=== PATIENT | female | born 1950 | race Caucasian/White ===

== ENCOUNTER 2020-05-13 15:37 | Emergency (ER) | payer MEDICARE ==
[~2020-05-13] VITALS: Ht 160 cm; Wt 87.0 kg
[2020-05-13 15:42] VITALS: BP 184/76
[2020-05-13] MEDS ORDERED: KETOROLAC 30 MG/1 ML IM ONE (17:00)
[2020-05-13] MEDS ORDERED: ACETAMINOPHEN 325 MG TABLET PO ONE (17:00)
[2020-05-13] MEDS ORDERED: KETOROLAC 30 MG/1 ML ONE (17:10)
[2020-05-13] MEDS ORDERED: ACETAMINOPHEN 325 MG TABLET ONE (17:11)
--- NOTE | 2020-05-13 18:19 | NUR ---
[facility] CANCELLED PT CANNOT LAY FLAT. PROVIDER AWARE. RECORDS REQUESTED FROM [facility].
--- NOTE | 2020-05-13 19:08 | NUR ---
PT REFUSING NEW VITALS.
== END 2020-05-13 19:37 | disposition home or self-care (01) ==
LOC: ED 16:49
DX: M12.562 Traumatic arthropathy, left knee (principal); M12.561 Traumatic arthropathy, right knee; M12.551 Traumatic arthropathy, right hip; E11.9 Type 2 diabetes mellitus without complications; F17.200 Nicotine dependence, unspecified, uncomplicated; I10 Essential (primary) hypertension; E78.5 Hyperlipidemia, unspecified
CPT/HCPCS: 96372; 99283; J1885

== ENCOUNTER 2020-11-30 20:35 | Inpatient (IN) | payer MEDICARE, OTHER ==
[~2020-11-30] VITALS: Ht 160 cm; Wt 92.6 kg
[~2020-11-30 20:35] MED LIST: ASPI-963 PO; CIPR250T27 PO; HYDR25TA6 PO; INSU100I13 SQ; LISI20TA21 PO; PROP40TA PO; SIMV40TA20 PO; SITA100T PO
[2020-11-30] MEDS ORDERED: ONDANSETRON ODT 4 MG PO PRN (21:00)
[2020-11-30] MEDS ORDERED: ACETAMINOPHEN 325 MG TABLET PO PRN (21:00)
[2020-11-30] MEDS ORDERED: DOCUSATE 100 MG CAPSULE PO PRN (21:00)
[2020-11-30] MEDS ORDERED: BISACODYL 10 MG SUPP PR PRN (21:00)
[2020-11-30] MEDS ORDERED: POLYETHYLENE GLYCOL 17 GM PACKET PO PRN (21:00)
[2020-11-30] MEDS ORDERED: LORazepam 1MG TABLET PO ONE (23:00)
[2020-11-30] MEDS ORDERED: OLANZAPINE 5 MG TABLET PO ONE (23:00)
[2020-12-01 01:02] VITALS: BP 111/78
[2020-12-01 01:32] VITALS: BP 111/78
[2020-12-01 07:54] VITALS: BP 153/89
[2020-12-01 08:12] LABS: BASOPHILS % (AUTO) 0 % (0-1); EOSINOPHILS % (AUTO) 4 % (1-7); LYMPHOCYTES % (AUTO) 7 % (22-44); MEAN CORPUSCULAR HEMOGLOBIN 28.9 pg (27.0-34.8); MEAN CORPUSCULAR HGB CONC 32.9 g/dL (32.4-35.8); MEAN PLATELET VOLUME 8.8 fL (7.4-10.4); MONOCYTES % (AUTO) 10 % (2-9); NEUTROPHILS % (AUTO) 79 % (42-75); PLATELET COUNT 169 x10^3/uL (130-400); RED CELL DISTRIBUTION WIDTH 14.5 % (9.6-15.2)
[2020-12-01 08:15] LABS: MD NO
[2020-12-01 08:23] LABS: ALBUMIN 3.8 g/dL (3.4-5.0); ANION GAP 3 mmol/L (5-15); CALCIUM 9.5 mg/dL (8.5-10.1); CHLORIDE 103 mmol/L (98-107)
[2020-12-01 08:48] LABS: ALANINE AMINOTRANSFERASE 19 U/L (12-78); ALKALINE PHOSPHATASE 120 U/L (45-117); BILIRUBIN,TOTAL 0.6 mg/dL (0.2-1.0); CHOL/HDL RATIO 2.3; CHOLESTEROL, TOTAL 188 mg/dL (140-239); CREATININE 1.05 mg/dL (0.55-1.02); FREE T4 (FREE THYROXINE) 1.33 ng/dL (0.76-1.46); HDL CHOL % 44 % (28-40); HDL CHOLESTEROL (DIRECT) 82 mg/dL (40-60); LDL CHOLESTEROL,CALCULATED 70 mg/dL (54-169); LDL/HDL RATIO 0.9 (0.5-3.0); TOTAL PROTEIN 7.6 g/dL (6.4-8.2); TRIGLYCERIDES 181 mg/dL (50-200); VLDL CHOLESTEROL 36 mg/dL (0-25)
[2020-12-01 10:30] VITALS: BP 160/90
[2020-12-01 10:40] VITALS: BP 160/90
[2020-12-01] MEDS ORDERED: LORazepam 2 MG/ML, 1ML IM ONE (11:00)
--- NOTE | 2020-12-01 11:35 | NUR ---
[facility] GAO-Fall Risk Medications NOT present and NOT receiving anticoagulants. Signed: 12/01/20 at 1136 by Elizabeth CHAPMAN
[2020-12-01] MEDS ORDERED: DIAZEPAM 10 MG TABLET ONE (12:23)
[2020-12-01] MEDS ORDERED: DIAZEPAM 5 MG/ML, 2ML IM ONE (13:00)
[2020-12-01] MEDS ORDERED: DIAZEPAM 10 MG TABLET PO ONE (13:00)
[2020-12-01] MEDS ORDERED: ZIPRASIDONE 20 MG INJ IM ONE ×2 (13:30)
[2020-12-01] MEDS: INSULIN LISPRO 100 UNITS/ML, PEN SQ-INSULIN SCH ×2 (16:00→20:47)
[2020-12-01] MEDS ORDERED: PROPRANOLOL 10 MG TABLET PO SCH (18:00)
[2020-12-01 18:14] LABS: MICROSCOPIC AUTO
[2020-12-01 20:40] VITALS: BP 161/86
[2020-12-01] MEDS: INSULIN GLARGINE 100 UNITS/ML, PEN SQ-INSULIN SCH (20:48)
[2020-12-01] MEDS: SIMVASTATIN 40 MG TABLET PO SCH (20:50)
[2020-12-01] MEDS: PROPRANOLOL 10 MG TABLET PO SCH (20:50)
[2020-12-01] MEDS: NITROFURANTOIN (MACROBID) 100 MG CAPSULE PO SCH (20:50)
[2020-12-02] MEDS: INSULIN LISPRO 100 UNITS/ML, PEN SQ-INSULIN SCH ×4 (07:00→21:06)
[2020-12-02 07:55] VITALS: BP 158/83
[2020-12-02] MEDS: PROPRANOLOL 10 MG TABLET PO SCH ×2 (09:03→19:57)
[2020-12-02] MEDS: INSULIN GLARGINE 100 UNITS/ML, PEN SQ-INSULIN SCH ×2 (09:03→21:06)
[2020-12-02] MEDS: LISINOPRIL 20 MG TABLET PO SCH (09:04)
[2020-12-02] MEDS: NITROFURANTOIN (MACROBID) 100 MG CAPSULE PO SCH (09:04)
[2020-12-02] MEDS ORDERED: ZIPRASIDONE 20 MG INJ IM ONE ×2 (11:39→12:00)
[2020-12-02] MEDS ORDERED: ZIPRASIDONE 20MG CAPSULE PO PRN (14:00)
[2020-12-02 14:14] VITALS: BP 105/70
[2020-12-02] MEDS: CEPHALEXIN 500 MG CAPSULE PO SCH ×2 (16:04→19:57)
[2020-12-02 19:45] VITALS: BP 119/78
[2020-12-02] MEDS: ZIPRASIDONE 20MG CAPSULE PO SCH (19:57)
[2020-12-02] MEDS: SIMVASTATIN 40 MG TABLET PO SCH (19:57)
[2020-12-03] MEDS: CEPHALEXIN 500 MG CAPSULE PO SCH ×2 (06:09→12:12)
[2020-12-03] MEDS: INSULIN LISPRO 100 UNITS/ML, PEN SQ-INSULIN SCH ×4 (07:00→20:22)
[2020-12-03 07:46] VITALS: BP 114/73
[2020-12-03] MEDS: PROPRANOLOL 10 MG TABLET PO SCH ×2 (08:34→20:23)
[2020-12-03] MEDS: ZIPRASIDONE 20MG CAPSULE PO SCH ×2 (08:34→20:23)
[2020-12-03] MEDS: LISINOPRIL 20 MG TABLET PO SCH (08:34)
[2020-12-03] MEDS: INSULIN GLARGINE 100 UNITS/ML, PEN SQ-INSULIN SCH ×2 (08:36→20:22)
[2020-12-03 19:50] VITALS: BP 146/80
[2020-12-03] MEDS: CIPROFLOXACIN 500 MG TABLET PO SCH (20:23)
[2020-12-03] MEDS: SIMVASTATIN 40 MG TABLET PO SCH (20:23)
[2020-12-04 07:46] VITALS: BP 98/70
[2020-12-04 07:53] VITALS: BP 120/73
[2020-12-04] MEDS: INSULIN LISPRO 100 UNITS/ML, PEN SQ-INSULIN SCH ×2 (07:57→11:50)
[2020-12-04] MEDS: CIPROFLOXACIN 500 MG TABLET PO SCH (07:59)
[2020-12-04] MEDS: PROPRANOLOL 10 MG TABLET PO SCH (07:59)
[2020-12-04] MEDS: ZIPRASIDONE 20MG CAPSULE PO SCH (07:59)
[2020-12-04] MEDS: LISINOPRIL 20 MG TABLET PO SCH (07:59)
[2020-12-04] MEDS: INSULIN GLARGINE 100 UNITS/ML, PEN SQ-INSULIN SCH (08:07)
[2020-12-04] MEDS ORDERED: CIPR500T87 PO (12:34)
== END 2020-12-04 15:30 | disposition left against medical advice (07) | DRG 885 ==
LOC: 3E 21:37
PROVIDERS: ADMIT Psychiatry & Neurology Psychosomatic Medicine; ATTEND Psychiatry & Neurology Psychosomatic Medicine
DX: F29 Unspecified psychosis not due to a substance or known physiological condition (principal); G92 Toxic encephalopathy; F11.20 Opioid dependence, uncomplicated; F15.20 Other stimulant dependence, uncomplicated; J98.11 Atelectasis; N39.0 Urinary tract infection, site not specified; E66.9 Obesity, unspecified; Z68.36 Body mass index [BMI] 36.0-36.9, adult; E11.9 Type 2 diabetes mellitus without complications; E78.5 Hyperlipidemia, unspecified; F17.200 Nicotine dependence, unspecified, uncomplicated; I10 Essential (primary) hypertension; I25.10 Atherosclerotic heart disease of native coronary artery without angina pectoris; R09.02 Hypoxemia; Z79.4 Long term (current) use of insulin; Z79.82 Long term (current) use of aspirin; Z79.899 Other long term (current) drug therapy; Z99.3 Dependence on wheelchair; Z53.29 Procedure and treatment not carried out because of patient's decision for other reasons
CPT/HCPCS: 36415; 71045; 80053; 80061; 81001; 82140; 82607; 82962; 84439; 84443; 85025; 87077; 87086; 87184; 87186; J3360; J3486; 92523-GN; J1815; J2060